=== PATIENT | male | born 1960 | race Caucasian/White ===

== ENCOUNTER → 2018-06-15 | Outpatient (CLI) | payer SELFPAY ==
--- NOTE | 2018-06-15 14:54 | RADIOLOGY IMAGING REPORT ---
FACILITY: [facility] PATIENT NAME: Tacho Bonilla : 1960 MR: [id number] V: [id number] EXAM DATE: ORDERING PHYSICIAN: NABIL HENDRIX TECHNOLOGIST: Location: [facility] Patient: Tacho Bonilla : 1960 Visit/Account:[id number] Date of Sevice: 06/15/2018 Ultrasound scrotum HISTORY: Left testicular pain COMPARISON: None. TECHNIQUE: Melgar scale, color and Duplex imaging of the scrotum was performed. FINDINGS: Testes: Right Testicle : The right testicle is normal is size and echotexture and measures 4.3 x 2.2 x 3 .9 cm. Left Testicle : The left testicle is normal in size and echotexture and measures 4.6 x 2.3 x 4.4 cm. Symmetric and unremarkable blood flow documented by color and Duplex Doppler ultrasound. Epididymides: Right Epididymis : The right epididymal head measures 1 cm. Left Epididymis: The left epididymal head measures 2.1 cm. Benign-appearing 1.1 cm left epididy mal head cyst is noted. Blood flow is unremarkable in each epididymis by color Doppler ultrasound. Hydrocele: Small bilateral hydroceles Varicocele: None. IMPRESSION: 1. Normal testicles. 2. 1.1 cm benign left epididymal head cyst. Report Dictated By: Derek Reyes MD at 06/15/2018 2:44 PM Report E-Signed By: Derek Reyes MD at 06/15/2018 2:49 PM WSN:[id number]
== END ==
LOC: US 12:41
DX: N50.3 Cyst of epididymis (principal)
CPT/HCPCS: 76870